=== PATIENT | female | born 1950 | race African-American/Black ===

== ENCOUNTER 2020-01-11 15:36 | Emergency (ER) | payer MEDICARE, OTHER ==
[2020-01-12 14:26] LABS: SARS-CoV-2 MS2 Positive; SARS-CoV-2 N Gene Positive; SARS-CoV-2 S Gene Negative; SARS-CoV-2 by NAA DETECTED (NotDetected); SARS-CoV-2 orf1ab Positive
== END 2020-01-11 15:50 | disposition home or self-care (01) ==
LOC: ERS 15:36
DX: U07.1 COVID-19 (principal); I10 Essential (primary) hypertension; Z79.899 Other long term (current) drug therapy
CPT/HCPCS: 99283; U0003; 87635